=== PATIENT | male | born 1995 | race African-American/Black ===

== ENCOUNTER 2017-07-24 15:24 | Emergency (ER) | payer MEDICAID ==
[~2017-07-24] VITALS: Ht 188 cm; Wt 95.3 kg
[2017-07-24 15:56] VITALS: BP 140/85
== END 2017-07-24 17:12 | disposition home or self-care (01) ==
LOC: ER 15:36
DX: S51.012A Laceration without foreign body of left elbow, initial encounter (principal); S00.12XA Contusion of left eyelid and periocular area, initial encounter; Y08.89XA Assault by other specified means, initial encounter; Y93.89 Activity, other specified; Y99.8 Other external cause status; Y92.89 Other specified places as the place of occurrence of the external cause
CPT/HCPCS: 12001; 70486

== ENCOUNTER 2017-07-31 11:14 | Emergency (ER) | payer MEDICAID ==
[~2017-07-31] VITALS: Ht 188 cm; Wt 95.3 kg
[2017-07-31 11:55] VITALS: BP 105/65
== END 2017-07-31 12:07 | disposition home or self-care (01) ==
LOC: ER 11:14
DX: S51.012D Laceration without foreign body of left elbow, subsequent encounter (principal); X58.XXXD Exposure to other specified factors, subsequent encounter

== ENCOUNTER 2017-08-06 15:56 | Emergency (ER) | payer MEDICAID ==
[~2017-08-06] VITALS: Ht 188 cm; Wt 92.1 kg
[2017-08-06 16:23] VITALS: BP 109/58
== END 2017-08-07 00:45 | disposition left against medical advice (07) ==
LOC: ER 16:00
DX: S41.112D Laceration without foreign body of left upper arm, subsequent encounter (principal); Z48.02 Encounter for removal of sutures; Z53.21 Procedure and treatment not carried out due to patient leaving prior to being seen by health care provider

== ENCOUNTER 2022-02-22 18:52 | Emergency (ER) | payer MEDICARE, MEDICAID ==
[~2022-02-22] VITALS: Ht 182.9 cm; Wt 77.1 kg
[2022-02-22 18:57] VITALS: BP 128/75
== END 2022-02-22 20:53 | disposition left against medical advice (07) ==
LOC: EDBD 18:52 → EDUNIT# 18:52 → ER 18:52
DX: S01.112A Laceration without foreign body of left eyelid and periocular area, initial encounter (principal); Z53.21 Procedure and treatment not carried out due to patient leaving prior to being seen by health care provider; W22.8XXA Striking against or struck by other objects, initial encounter; Y93.89 Activity, other specified; Y92.89 Other specified places as the place of occurrence of the external cause; Y99.8 Other external cause status